=== PATIENT | male | born 2000 | race Asian ===

== ENCOUNTER 2022-12-19 06:06 | Emergency (ER) | payer OTHER ==
[~2022-12-19] VITALS: Ht 170.2 cm; Wt 84.4 kg
[2022-12-19 06:24] VITALS: BP_SYST 145
--- NOTE | 2022-12-19 06:29 | NUR ---
PATIENT PRESENTS TO ED FOR RIGHT FLANK PAIN THAT BEGAN AT 0500 , PAIN NOTED AT 6/10, PATIENT APPEARS VERY UNCOMFORTABLE
--- NOTE | 2022-12-19 06:30 | NUR ---
Patient ambulatory to bed 7 for evaluation and treatment
--- NOTE | 2022-12-19 06:32 | NUR ---
REPORT GIVEN TO HAYLEY AT THIS TIME
--- NOTE | 2022-12-19 06:55 | NUR ---
ER at bedside examining patient.
[2022-12-19 06:58] LABS: BASOPHILS # (AUTO) 0.1 K/uL (0.0-0.2); BASOPHILS % (AUTO) 0.8 % (0.0-2.0); EOSINOPHILS % (AUTO) 0.2 % (0.0-4.0); HEMATOCRIT 48.7 % (36-54); HEMOGLOBIN 16.1 g/dL (14.0-18.0); LYMPHOCYTES # (AUTO) 1.8 K/uL (1.0-5.5); LYMPHOCYTES % (AUTO) 24.6 % (20.5-51.5); MEAN CORPUSCULAR HEMOGLOBIN 28 pg (27-31); MEAN CORPUSCULAR HGB CONC 33 % (32-36); MEAN CORPUSCULAR VOLUME 85 fL (79.0-98.0); MONOCYTES # (AUTO) 0.9 K/uL (0.0-1.0); MONOCYTES % (AUTO) 12.2 % (1.7-9.3); NEUTROPHILS # (AUTO) 4.5 K/uL (1.8-7.7); NEUTROPHILS % (AUTO) 62.2 % (40.0-70.0); PLATELET COUNT (AUTO) 237 K/uL (130-430); RED BLOOD CELL COUNT(AUTO) 5.74 MIL/uL (4.2-6.2); RED CELL DISTRIBUTION WIDTH 13.6 % (9.0-15.0); WHITE BLOOD COUNT (AUTO) 7.3 K/uL (4.8-10.8)
[2022-12-19] MEDS ORDERED: KETOROLAC TROMETHAMINE 30 MG VIAL IVP ONE (07:00)
--- NOTE | 2022-12-19 07:00 | NUR ---
PT BIB SELF FROM HOME C/O RIGHT FLANK PAIN 11/26. PT DENIES PAIN DURING URINATION. PT STATES PAIN SINCE 0500 THIS AM. PT ALSO STATES FLU LIKE SYMPTOMS 2DAYS. PT HAS SOME NAUSEA. PT IS AAO X4. PT IS RESTING IN BED WITH THE RAILS UP VSS
[2022-12-19 07:19] LABS: BILIRUBIN,URINE NEGATIVE (NEGATIVE); BLOOD, URINE 3+ (NEGATIVE); COLOR,URINE YELLOW (YELLOW); GLUCOSE,URINE NEGATIVE (NEGATIVE); KETONES,URINE 1+ (NEGATIVE); LEUKOCYTE ESTERASE ,URINE NEGATIVE (NEGATIVE); NITRITE, URINE NEGATIVE (NEGATIVE); PH,URINE 5.5 (5.0-8.0); PROTEIN URINE 1+ (NEGATIVE); UROBILINOGEN,URINE 0.2 (0.2-1.0)
[2022-12-19 07:20] LABS: ANION GAP 14 (5-15); CALCIUM 8.5 mg/dL (8.4-11.0); CHLORIDE 101 mmol/L (98-107); CREATININE 1.05 mg/dL (0.55-1.30); GFR AFRICAN AMERICAN 115 mL/min (>90); GLUCOSE 97 mg/dL (74-106); UREA NITROGEN, BLOOD 13 mg/dL (8-21)
[2022-12-19 07:24] LABS: ALANINE AMINOTRANSFERASE 38 U/L (12-78); ALBUMIN 4.2 g/dL (3.4-4.8); AMYLASE 126 U/L (0-100); ASPARTATE AMINOTRANSFERASE 20 U/L (10-37); LIPASE 128 U/L (73-393); TOTAL BILIRUBIN 0.4 mg/dL (0.0-1.0)
--- NOTE | 2022-12-19 07:30 | NUR ---
RECEIVED REPORT FROM DAMIR KIDD. RECEIVED PT AWAKE AND ALERT LYING IN GURNEY. NO S/S OF DISTRESS NOTED. SAFETY PRECAUTIONS IN PLACE.
[2022-12-19 07:40] LABS: ACETONE, SERUM NEGATIVE (NEGATIVE)
[2022-12-19 07:44] LABS: CLARITY/URINE SLIGHTLY HAZY (CLEAR)
[2022-12-19 07:45] LABS: BACTERIA,URINE None Seen /HPF (None Seen); MUCUS,URINE 3+ /LPF (None Seen); RBC,URINE 20-50 /HPF (0-3); WBC,URINE 0-3 /HPF (0-3)
[2022-12-19] MEDS ORDERED: TRAM50TA2 PO (08:45)
[2022-12-19] MEDS ORDERED: IBUP-1971 PO (08:45)
[2022-12-19 08:56] VITALS: BP_SYST 147
--- NOTE | 2022-12-19 08:56 | NUR ---
Patient given written and verbal discharge instructions and verbalizes understanding. ER Dr Orantes discussed with patient the results and treatment provided. Patient in stable condition. ID arm band removed. IV catheter removed intact and dressing applied, no active bleeding. Rx of Ultram and Motrin given. Patient educated on pain management and to follow up with PMD. Pain Scale 0/10. Opportunity for questions provided and answered. Medication side effect fact sheet provided.
== END 2022-12-19 08:56 | disposition home or self-care (01) ==
LOC: SED 06:06
DX: N23 Unspecified renal colic (principal); R11.0 Nausea; Z91.011 Allergy to milk products; Z79.899 Other long term (current) drug therapy
CPT/HCPCS: 99285; 74176; 96374; 80053; 81000; 82009; 82150; 83690; 85025; 36415; 76376; 83605; J1885